=== PATIENT | female | born 1935 | race Caucasian/White ===

== ENCOUNTER 2016-05-10 13:26 | Outpatient (CLI) | payer OTHER ==
[~2016-05-10 13:26] MED LIST: ARICEPT10 MG PO; ATENOLOL50 MG PO; ATORVASTATIN CA40 MG PO; BACLOFEN10 MG PO; CELEXA20 MG PO; DIAZEPAM5 MG PO; FLONASE AL50 MCG/ACT IN; HYDROCODONE/ACETAMIN PO; MOBIC7.5 MG PO; MULTIVITAMIN1 TAB PO; OMEPRAZOLE20 M1 PO
--- NOTE | 2016-05-10 14:14 | DIAGNOSTIC IMAGING REPORT ---
PROCEDURE: DEXA BONE DENSITY STUDY CLINICAL INDICATION: POSTMENOPUSAL COMPARISON: None. FINDINGS: LUMBAR SPINE: Bone mineral density 0.836 g/cm2, T score -1.9 osteopenia LEFT HIP: Bone mineral density 0.696 g/cm2, T score -2.0 osteopenia LEFT FEMORAL NECK: Bone mineral density 0.644 g/cm2, T score -1.8 osteopenia FRACTURE RISK CALCULATION ( when applicable): 10-year fracture risk of a major osteoporotic fracture 26% and of a hip fracture 16% (T score greater or equal to -1.0 to: NORMAL) (T score from -1.1 to -2.4: OSTEOPENIA) (T score ess than or equal to -2.5: OSTEOPOROSIS) IMPRESSION: 1. Osteopenia spine hip and femoral neck, 10-year fracture risk 26% and hip fracture risk of 16%
== END 2016-05-10 23:00 ==
LOC: XR SRH 13:26
DX: M85.88 Other specified disorders of bone density and structure, other site (principal)

== ENCOUNTER 2016-06-29 15:20 | Outpatient (CLI) | payer OTHER | END 2016-06-29 23:00 | LOC: LAB SRH 15:20 | DX: R10.84 Generalized abdominal pain (principal); B18.2 Chronic viral hepatitis C | CPT/HCPCS: 90008; 90074; 90100; 94060; 95059 ==